=== PATIENT | male | born 1960 | race Caucasian/White ===

== ENCOUNTER 2017-02-21 16:01 | Emergency (ER) | payer MEDICAID, MEDICARE ==
[~2017-02-21] VITALS: Ht 177.8 cm; Wt 85.0 kg
[~2017-02-21 16:01] MED LIST: HYDR-3533 PO; [UNRECOGNIZED DRUG - REMARK]
[2017-02-21 16:04] VITALS: BP 128/85; PULSE 84; RESP 16; TEMP 98.2; O2SAT 98
--- NOTE | 2017-02-21 16:15 | PD ---
HPI . lower back pain Chief Complaint: Back/ Neck Pain or Injury Time Seen by Provider: 16:15 Travel History International Travel<30 days: No Contact w/Intl Traveler<30days: No Traveled to known affect area: No History of Present Illness HPI 56-year-old male with history of chronic pain, chronic rightLE chronic ulcer, chronic hip issues here with complaints of lower back pain. Patient says for the past 2 days he's had more severe back pain and usual. He denies any mechanism of injury. He recently moved back to the area from [place]. He has not yet established with a primary care provider locally. He is here as he has 8/10 pain in his lower back. He denies any radiation of pain. He denies any bowel or bladder dysfunction. He has no saddle anesthesia. PFSH Past Medical History Hx Anticoagulant Therapy: Yes (supposed to be) Arthritis: Yes Blood Disorders: No Depression: Yes Cancer: No Cardiovascular Problems: Yes (PVD) High Cholesterol: Yes Chemotherapy: No COPD: Yes Cerebrovascular Accident: No Diabetes: No Diminished Hearing: No Endocrine: No Genitourinary: No Headaches: Yes Hypertension: Yes Musculoskeletal: No Neurologic: No Reproductive: No Respiratory: Yes (COPD) Pneumonia: Yes Seizures: Yes (MILD "UNDIAGNOSED" PER PT) Past Surgical History Body Medical Devices: BLOOD CLOT SCREEN Joint Replacement: Yes (L HIP 2006) Neurologic Surgery: Yes (ANEURYSM SURGERY 1986) Tonsillectomy: Yes Other Surgery: Yes (SKIN GRAFT TO RIGHT CALF-UNSUCCESSFUL, right shoulder staph infection remov) Social History Alcohol Use: No Tobacco Use: Yes (11/04 ppd) Substance Use: Yes (LAST USED MARIJUANA 2 MONTHS AGO) Allergies-Medications (Allergen,Severity, Reaction): Coded Allergies: Dilantin (Unverified Allergy, Intermediate, Edema, 02/21/17) Shellfish (Verified Allergy, Intermediate, Shortness of Breath, 02/21/17) Reported Meds & Prescriptions Reported Meds & Active Scripts Active Ibuprofen 800 Mg Tab 800 Mg PO TID Flexeril (Cyclobenzaprine HCl) 5 Mg Tab 5 Mg PO TID Review of Systems General / Constitutional: No: Fever Eyes: No: Visual changes HENT: No: Headaches Cardiovascular: No: Chest Pain or Discomfort Respiratory: No: Shortness of Breath Gastrointestinal: No: Abdominal Pain Genitourinary: No: Dysuria Musculoskeletal: Positive: Pain (lumbar back pain) Skin: No Rash Neurologic: No: Weakness Psychiatric: No: Depression Endocrine: No: Polydipsia Hematologic/Lymphatic: No: Easy Bruising Physical Exam Narrative GENERAL: AAO x 3, no acute distress, Well-nourished, well-developed patient. SKIN: Warm and dry. No visible rashes or bruising. right lower extremity chronic ulceration without active infection 6.5x6.5 HEAD: Normocephalic and atraumatic. EYES: No scleral icterus. No injection or drainage. ENT: No nasal drainage noted. Mucous membranes pink. Airway patent. NECK: Supple, trachea midline. No JVD. CARDIOVASCULAR: Regular rate and rhythm without murmurs, gallops, or rubs. RESPIRATORY: Breath sounds equally diminished bilaterally. No accessory muscle use. No rhonchi or rales. GASTROINTESTINAL: Visual inspection is normal EXTREMITIES: No cyanosis or edema. Right lower extremity with a large nonhealing ulceration not acutely infected. BACK: Nontender without obvious deformity. No CVA tenderness. Paraspinal tenderness throughout the lumbar spine. No spinal tenderness. Ataxic gait and uses cane for ambulation. PSYCH: AAO x 3, normal affect. Data Data Last Documented VS Vital Signs Date Time Temp Pulse Resp B/P Pulse Ox O2 Delivery O2 Flow Rate FiO2 02/21/17 16:04 98.2 84 16 128/85 98 Orders Orphenadrine Inj (Norflex Inj) (02/21/17 16:30) MDM Medical Decision Making Medical Screen Exam Complete: Yes Emergency Medical Condition: Yes Medical Record Reviewed: Yes Differential Diagnosis lumbar strain, less likely acute spinal fracture, less likely cauda equina Narrative Course 56-year-old male with history of chronic pain, chronic rightLE chronic ulcer, chronic hip issues here with complaints of lower back pain. Patient says for the past 2 days he's had more severe back pain and usual. He denies any mechanism of injury. He recently moved back to the area from [place]. He has not yet established with a primary care provider locally. He is here as he has 8/10 pain in his lower back. He denies any radiation of pain. He denies any bowel or bladder dysfunction. He has no saddle anesthesia. Patient seen and examined. He appears to have paraspinal muscle tenderness. I do not see any reason for imaging at this moment. I do not suspect any bony abnormality that is acute. He suffers from chronic pain and has been seen previously in the community clinic for multiple issues related to pain. He does have a nonhealing ulcer on his right lower extremity that has been present for several years. It does not appear infected. I will provide him with a shot of Norflex here in the emergency department I will send him home with a course of muscle relaxers. In regards to his overall health and well-being, I advised that he seek consultation from a primary care provider as soon as possible I have given him the paperwork for [employer]. Patient verbalized understanding of instructions, questions were answered, and thanked me for their care. I advised them if their condition worsens, please return to the nearest emergency room for further care. Diagnosis Primary Impression: Lumbosacral strain Qualified Code: S39.012A - Lumbosacral strain, initial encounter Patient Instructions: General Instructions Additional Instructions: Please return to emergency department if your symptoms return or worsen. Follow up with your primary care provider. Take medications as prescribed. Muscle relaxers can cause drowsiness. Do not drive, swim or operate heavy machinery while using these medications. Please establish with a primary care provider as soon as possible Med/Other Pt SpecificInfo: Prescription(s) given Scripts Ibuprofen 800 Mg Say587 Mg PO TID #21 TAB Prov:Yuki Gaxiola MD 02/21/17 Cyclobenzaprine (Flexeril)5 Mg Tab5 Mg PO TID #21 TAB Prov:Yuki Gaxiola MD 02/21/17 Disposition: 01 DISCHARGE HOME Condition: Stable Patricia Castro Feb 21, 2017 16:15
[2017-02-21] MEDS ORDERED: CYCL5TAB PO (16:24)
[2017-02-21] MEDS ORDERED: IBUP800T23 PO (16:24)
[2017-02-21] MEDS ORDERED: ORPHENADRINE INJ 60 MG/2 ML AMP IM ONE (16:30)
== END 2017-02-21 16:57 | disposition home or self-care (01) ==
LOC: NEPK 16:01
DX: S39.012A Strain of muscle, fascia and tendon of lower back, initial encounter (principal); X58.XXXA Exposure to other specified factors, initial encounter
CPT/HCPCS: 96372; 99283; J2360